=== PATIENT | male | born 1985 | race Two or more races ===

== ENCOUNTER 2017-02-17 18:57 | Emergency (ER) | payer OTHER ==
[2017-02-17] MEDS ORDERED: IBUPROFEN 800 MG TABLET PO ONE (19:11)
[2017-02-17] MEDS ORDERED: NORMAL SALINE 1000 ML 1,000 ML IV PRN (19:11)
--- NOTE | 2017-02-17 19:12 | ER Document Report ---
ED Medical Screen (RME) - General Chief Complaint: Fever Stated Complaint: FEVER,CHILLS Time Seen by Provider: 02/17/17 19:08 Mode of Arrival: Ambulatory Information source: Patient TRAVEL OUTSIDE OF THE [place] IN LAST 30 DAYS: No - HPI Patient complains to provider of: Fever Onset: Yesterday Notes: 02/17/17 19:12 Patient is a 32-year-old healthy male who presents to the emergency room complaining of fever since yesterday, sensation of feeling "woozy" in the head today, he denies a cough, cold or congestion, no sinus pain or pressure, no neck stiffness, no headache, no ear pain, no abdominal pain, no nausea, vomiting or diarrhea, no known sick contacts - Related Data Allergies/Adverse Reactions: No Known Allergies Allergy (Unverified 02/17/17 19:01) Past Medical History - Social History Frequency of alcohol use: A beer a day Drug Abuse: None Renal/ Medical History: Denies: Hx Peritoneal Dialysis Surgical Hx: Negative Physical Exam - Vital signs Vitals: Temp Pulse Resp BP Pulse Ox 100.5 F H 95 20 143/76 H 97 02/17/17 19:01 02/17/17 19:01 02/17/17 19:01 02/17/17 19:01 02/17/17 19:01 Course - Vital Signs Vital signs: Temp Pulse Resp BP Pulse Ox 100.5 F H 95 20 143/76 H 97 02/17/17 19:01 02/17/17 19:01 02/17/17 19:01 02/17/17 19:01 02/17/17 19:01
--- NOTE | 2017-02-17 20:06 | RADIOLOGY REPORT (SQ) ---
EXAM DESCRIPTION: CHEST PA/LAT COMPLETED DATE/TIME: 02/17/2017 7:54 pm REASON FOR STUDY: FEVER COMPARISON: None. TECHNIQUE: Frontal and lateral radiographic views of the chest acquired. NUMBER OF VIEWS: Two view. LIMITATIONS: None. FINDINGS: LUNGS AND PLEURA: No opacities, masses or pneumothorax. No pleural effusion. MEDIASTINUM AND HILAR STRUCTURES: No masses or contour abnormalities. HEART AND VASCULAR STRUCTURES: Heart normal size. No evidence for failure. BONES: No acute findings. HARDWARE: None in the chest. OTHER: No other significant finding. IMPRESSION: NO SIGNIFICANT RADIOGRAPHIC FINDING IN THE CHEST. TECHNICAL DOCUMENTATION: JOB ID: [id number] [employer]- All Rights Reserved
[2017-02-17 20:09] LABS: ABSOLUTE LYMPHOCYTES (AUTO) 1.6 10^3/uL (0.5-4.7); ABSOLUTE MONOCYTES (AUTO) 0.9 10^3/uL (0.1-1.4); ABSOLUTE NEUT (AUTO) 8.9 10^3/uL (1.7-8.2); BASOPHILS % (AUTO) 0.3 % (0-2); EOSINOPHILS % (AUTO) 0.4 % (0-6); HEMATOCRIT 43.5 % (37.9-51.0); HEMOGLOBIN 14.2 g/dL (13.5-17.0); HGB HCT DIFFERENCE -0.9; MEAN CORPUSCULAR HEMOGLOBIN 27.2 pg (27.0-33.4); MEAN CORPUSCULAR HGB CONC 32.7 g/dL (32.0-36.0); MEAN CORPUSCULAR VOLUME 83 fl (80-97); MONOCYTES % (AUTO) 7.6 % (3-13); RED BLOOD COUNT 5.21 10^6/uL (4.35-5.55); SEGMENTED NEUTROPHILS % (AUTO) 77.7 % (42-78); WHITE BLOOD COUNT 11.5 10^3/uL (4.0-10.5)
[2017-02-17 20:10] LABS: APPEARANCE,URINE CLEAR; BILIRUBIN,URINE NEGATIVE (NEGATIVE); GLUCOSE, URINE NEGATIVE (NEGATIVE); KETONES,URINE NEGATIVE (NEGATIVE); LEUKOCYTE ESTERASE,URINE NEGATIVE (NEGATIVE); NITRITE,URINE NEGATIVE (NEGATIVE); PROTEIN,URINE NEGATIVE (NEGATIVE); URINE SPECIFIC GRAVITY 1.016
[2017-02-17 20:20] LABS: ALANINE AMINOTRANSFERASE 52 U/L (21-72); ALBUMIN 4.4 g/dL (3.5-5.0); ALKALINE PHOSPHATASE 123 U/L (38-126); ANION GAP 14 (5-19); ASPARTATE AMINO TRANSFERASE 33 U/L (17-59); BILIRUBIN,DIRECT 0.4 mg/dL (0.0-0.4); BILIRUBIN,TOTAL 0.7 mg/dL (0.2-1.3); BLOOD UREA NITROGEN 12 mg/dL (7-20); CALCIUM 9.2 mg/dL (8.4-10.2); CARBON DIOXIDE 25 mmol/L (22-30); CHLORIDE 100 mmol/L (98-107); CREATININE RESULT 0.88 mg/dL (0.52-1.25); GLUCOSE 92 mg/dL (75-110); POTASSIUM 4.5 mmol/L (3.6-5.0); SODIUM 139.1 mmol/L (137-145); TOTAL PROTEIN 7.9 g/dL (6.3-8.2)
--- NOTE | 2017-02-17 20:23 | ER Document Report ---
ED General - General Chief Complaint: Fever Stated Complaint: FEVER,CHILLS Time Seen by Provider: 02/17/17 19:08 Mode of Arrival: Ambulatory Notes: Patient is a 32-year-old male without past medical history, no prior surgical history who presents with approximately 3 days of fever. The patient states he does work outside for extensive periods of times in the heat and does not have air-conditioning in his home. He began to feel poorly last night and somewhat lightheaded, "woozy" in the head. He denies any additional symptoms other than this unsteadiness in his head as well as fever. He denies any cough, sputum production, abdominal pain, vomiting, diarrhea, testicular pain, dysuria, flank pain, sore throat, rash, neck pain, neck stiffness or headache. He denies any possible exposure to ticks or any known tick bites. He denies any history of similar symptoms in the past. He is taking acetaminophen and had no improvement of his fever. Nothing is been noted to worsen his symptoms. He has been trying to drink fluids today. TRAVEL OUTSIDE OF THE [place] IN LAST 30 DAYS: No - Related Data Allergies/Adverse Reactions: No Known Allergies Allergy (Unverified 02/17/17 19:01) Past Medical History - General Information source: Patient - Social History Smoking Status: Never Smoker Frequency of alcohol use: A beer a day Drug Abuse: None Lives with: Spouse/Significant other Family History: Reviewed & Not Pertinent Renal/ Medical History: Denies: Hx Peritoneal Dialysis Surgical Hx: Negative Review of Systems - Review of Systems Notes: Constitutional: Positive for fever. HENT: Negative for sore throat. Eyes: Negative for visual changes. Cardiovascular: Negative for chest pain. Respiratory: Negative for shortness of breath. Gastrointestinal: Negative for abdominal pain, vomiting or diarrhea. Genitourinary: Negative for dysuria. Musculoskeletal: Negative for back pain. Skin: Negative for rash. Neurological: Negative for headaches, weakness or numbness. 10 point ROS negative except as marked above and in HPI. Physical Exam - Vital signs Vitals: Temp Pulse Resp BP Pulse Ox 100.5 F H 95 20 143/76 H 97 02/17/17 19:01 02/17/17 19:01 02/17/17 19:01 02/17/17 19:01 02/17/17 19:01 Interpretation: Febrile Notes: PHYSICAL EXAMINATION: GENERAL: Well-appearing, well-nourished and in no acute distress. HEAD: Atraumatic, normocephalic. EYES: Pupils equal round and reactive to light, extraocular movements intact, sclera anicteric, conjunctiva are normal. ENT: nares patent, oropharynx clear without exudates. Moderately dry mucous membranes. NECK: Normal range of motion, supple without lymphadenopathy LUNGS: Breath sounds clear to auscultation bilaterally and equal. No wheezes rales or rhonchi. HEART: Regular rate and rhythm without murmurs ABDOMEN: Soft, nontender, normoactive bowel sounds. No guarding, no rebound. No masses appreciated. EXTREMITIES: Normal range of motion, no pitting or edema. No cyanosis. NEUROLOGICAL: No focal neurological deficits. Moves all extremities spontaneously and on command. PSYCH: Normal mood, normal affect. SKIN: Warm, Dry, normal turgor, no rashes or lesions noted. Course - Re-evaluation Re-evalutation: 02/17/17 20:22 Patient presents with a fever of unknown origin but is otherwise extremely well in appearance does not meet SIRS or sepsis criteria. He has no probable source of infection based on history. His clinical history is not all consistent with [place] spotted fever or any alternative rickettsial disease. He has no evidence of cellulitis or infected skin source on exam. No respiratory symptoms to suggest an acute bronchitis or pneumonia. He denies any headache and has no evidence of meningeal signs on exam to suggest an acute meningitis or encephalitis. He has no focal abdominal tenderness on examination to suggest an acute intra-abdominal pathology such as an acute appendicitis, cholangitis, bowel perforation or mesenteric ischemia. At this time the exact source of his fever is uncertain although it may be environmental exposure in origin given that he is frequently on that he does not have air conditioning at home. Chest x-ray is clear, labs unremarkable. Will provide IV fluids and reassess. If this remains unremarkable will plan for discharge with return precautions and follow-up recommendations. 02/17/17 20:53 Labs are all unremarkable without evidence of bandemia, leukocytosis, SHARRI, or acute urinary tract infection. Patient otherwise continues to appear well. At this time will discharge with return precautions and follow-up recommendations. Verbal discharge instructions given a the bedside and opportunity for questions given. Medication warnings reviewed. Patient is in agreement with this plan and has verbalized understanding of return precautions and the need for primary care follow-up in the next 24-72 hours. - Vital Signs Vital signs: Temp Pulse Resp BP Pulse Ox 100.5 F H 95 20 143/76 H 97 02/17/17 19:01 02/17/17 19:01 02/17/17 19:01 02/17/17 19:01 02/17/17 19:01 - Laboratory Result Diagrams: 02/17/17 19:48 02/17/17 19:48 Laboratory results interpreted by me: 02/17/17 02/17/17 19:48 19:48 WBC 11.5 H Absolute Neutrophils 8.9 H Urine Urobilinogen 2.0 H - Diagnostic Test Radiology reviewed: Image reviewed, Reports reviewed Radiology results interpreted by me: 02/17/17 20:55 Chest x-ray: No acute infiltrate or pneumothorax Discharge - Discharge Clinical Impression: Fever of unknown origin (FUO) Condition: Good Disposition: HOME, SELF-CARE Additional Instructions: The exact cause of your fever is unclear today. Your labs are otherwise normal. Your symptoms may be due to heat exposure. Please try to keep into a cool place as much as possible continue to drink plenty of water and rehydration solution such as Gatorade or Pedialyte. Return to the emergency department immediately if you have any new or worsening symptoms as we are uncertain of why you have had this fever today. Specifically, if you began developing chest pain, shortness of breath, abdominal pain, vomiting, diarrhea, severe headache, rash, or any other symptoms please return.
[2017-02-17 21:14] VITALS: BP 125/69
== END 2017-02-17 21:15 | disposition home or self-care (01) ==
LOC: ER 18:57
DX: R50.9 Fever, unspecified (principal)
CPT/HCPCS: 99284; 96360; 36415; 87040; 85025; 80053; 81001; 71020; J7030

== ENCOUNTER → 2020-01-23 | Outpatient (CLI) | payer OTHER ==
[2020-01-23 09:40] LABS: SPERM MORPHOLOGY SENT TO REFERENC LAB
[2020-01-23 10:48] LABS: SPERM CONCENTRATION 86.8 X10^6/mL (>12.0); TOTAL SPERM COUNT 199.6 X10^6 (>33.0)
[2020-01-23 10:49] LABS: SPERM PROGRESSION 4
== END ==
LOC: LAB 09:10
PROVIDERS: ATTEND Specialist
DX: N46.9 Male infertility, unspecified (principal)
CPT/HCPCS: 36415; 89320